=== PATIENT | male | born 1990 | race Caucasian/White ===

== ENCOUNTER 2018-10-05 20:57 | Emergency (ER) | payer MEDICAID, SELFPAY ==
[2018-10-05 21:04] VITALS: BP 137/82; PULSE 86; RESP 18; TEMP 37.3; O2SAT 99
--- NOTE | 2018-10-05 21:18 | W.ED.GENAD ---
Discharge Plan Disposition Patient Disposition: HOME Condition: Improving Discharge Details Chief Complaint: GenMedical Clinical Impression: Inguinal lymphadenopathy Primary Care Provider: CASIE BETTS ED Provider: Harpreet Holland Home Meds and New Rx's Prescriptions: No Action No Known Home Meds RF: 0 Discharge Instructions Additional Instructions: Apply heat to the area 3 times daily. If you have enlarging mass, develop a fever, redness, increased discomfort please follow-up with your regular doctor. I would anticipate resolution of approximately 7 to 10 days time. Return for any acute concerns Medical Decision Making 28-year-old male with right inguinal lymphadenopathy that he noticed tonight. He does use a razor/marina on his pubic hair and question small area of folliculitis which may be from a razor burn. As his tetanus is out of date it was updated in the ED. Do not appreciate significant cellulitis. He has mild lymphadenopathy without evidence of inguinal hernia. I will treat him conservatively with warm soaks and observation. He stable for discharge to home HPI General Mode of arrival: ambulatory. Date/Time Provider Initiated Documentation: 10/05/18 21:05. Limitations to Documentation: no limitations. Information obtained by: patient. History of Present Illness 28 year old M presents to the emergency department with the chief complaint of Right groin lump , described as moderate, Quality is described as dull and constant, and is localized to the right. Patient reports no radiation. Patient started experiencing this day(s) and it has been constant. No relieving factors improve symptom(s), No exacerbating factors reported . Patient notes no other symptoms.. Patient did receive the following treatments prior to arrival, none Related Data Home Medications Medication Instructions Recorded Confirmed Unknown [No Known Home Meds] 10/05/18 10/05/18 Allergies Allergy/AdvReac Type Severity Reaction Status Date / Time No Known Allergies Allergy Unverified 10/05/18 21:10 General Stated Complaint: GenMedical MARQUISE: 3 Review of Systems Review of Systems States he does use a marina/razor of his pubic hair. Tetanus out of date. No other recent illness. Sick systems reviewed and negative FORMERLY [facility], [facility] Medical History (Updated 10/05/18 @ 21:08 by Melina Jacob) Inguinal hernia (Acute) Surgical History (Updated 10/05/18 @ 21:11 by Melina Jacob) H/O inguinal hernia repair (Acute) Social History Smoking/Tobacco Use Status: Current every day Tobacco Type: cigarettes Smoking cigarettes per day: 30 Alcohol Intake: current Alcohol Intake frequency: a few times a week Alcohol type: beer Substance use type: does not use Do you feel safe at home: Yes Do you feel safe in your relationship?: Yes Exam Narrative Exam Narrative: GEN: awake, alert, oriented 3. Pleasant, well groomed, interactive. HEAD: Normocephalic, atraumatic ENT: Mucous membranes moist, oropharynx unremarkable, External ear exam unremarkable EYES: PERRL, EOMI NECK: Full ROM, no JONATHON, no menigismus ABDOMEN: Soft, nontender, 2 small lymph nodes prominent in right inguinal region. No other mass. 2+ inguinal pulse +Bowel sounds. Small area of folliculitis present right, no fluctuance EXT: Full ROM, no edema, no rash Neuro: Grossly normal neurologic exam, conversant, interactive. Psych: Speech fluent, thoughts congruent, affect normal Course Vital Signs Temperature 37.3 C 10/05/18 21:04 Pulse 86 10/05/18 21:04 Respiratory Rate 18 10/05/18 21:04 Blood Pressure 137/82 10/05/18 21:04 Pulse Oximetry 99 10/05/18 21:04 Temperature 37.3 C 10/05/18 21:04 Temperature Source Skin 10/05/18 21:04 Pulse 86 10/05/18 21:04 Respiratory Rate 18 10/05/18 21:04 Respiratory Effort Non-Labored 10/05/18 21:07 Blood Pressure 137/82 10/05/18 21:04 Blood Pressure Position Supine 10/05/18 21:04 Pulse Oximetry 99 10/05/18 21:04 Oxygen Delivery Method Room Air 10/05/18 21:04 Oxygen Flow Rate 0 10/05/18 21:04 Pain Level 6 10/05/18 21:04
[2018-10-05] MEDS: Tetanus & Diphtheria Tox,ADULT 0.5 ML VIAL IM (21:29)
== END 2018-10-05 21:35 | disposition home or self-care (01) ==
PROVIDERS: Emergency Provider Emergency Medicine; PCP Family Medicine
DX: R59.0 Localized enlarged lymph nodes (principal); L73.9 Follicular disorder, unspecified
CPT/HCPCS: 90471; 99284; 99282

== ENCOUNTER 2019-03-29 14:54 | Emergency (ER) | payer MEDICAID, SELFPAY ==
[2019-03-29 15:01] VITALS: BP 135/86; PULSE 88; RESP 18; TEMP 36.5; O2SAT 100
--- NOTE | 2019-03-29 15:44 | ED.GENADUL_ITS ---
Discharge Plan Disposition Patient Disposition: HOME Condition: Good Discharge Details Chief Complaint: EarProblem Clinical Impression: Cellulitis of ear Primary Care Provider: Juan Hoskins ED Provider: Mahad Salas Home Meds and New Rx's Prescriptions: New clindamycin HCl 150 mg capsule 450 mg PO QID 7 Days Qty: 84 RF: 0 Discharge Instructions Additional Instructions: Please take the antibiotic as directed. Please make sure you are taking it with yogurt with live culture like activity to prevent any diarrhea. Please keep the pressure clamp on the ear for the next 24 hours. If you notice any worsening of your symptoms, or any new symptoms such as spreading of the redness, pain in the side of your face or behind her ear, increased swelling, vomiting, diarrhea, fever, chills, shortness of breath, chest pain, numbness, weakness, or fainting , please return immediately to the emergency department for reevaluation. Please follow up with your primary care provider as soon as possible for reassessment and reevaluation. As always, it was a pleasure participating in your medical care today. Referrals: Juan Hoskins [Primary Care Provider] - Discharge Data Discharge Date/Time-TO BE ENTERED AT DEPARTURE: 03/29/19 15:50 Medical Decision Making This is a 29-year-old male with no significant past medical history who presents with swelling redness on his right ear. He had a pimple on the right ear which she tried to squeeze multiple times and was able to express a little bit of blood, however today he noticed significant amount of swelling and redness. Exam demonstrates a very small area of fluctuance and fluid collection both anterior and posterior to the cartilage. This was confirmed by ultrasound. I did offer to anesthetize the area and then I&D it with an 18-gauge needle however the patient did not want any anesthesia. 18-gauge needle was applied to both the anterior and posterior aspect, there was no invagination into the cartilage. Patient tolerated this well. The majority of the expected fluid was blood, did not appear to be any significant evidence of pus. Notable pressure dressing was then applied and left using ear clamping devices. There is no evidence of a vascular compromise after this. Patient tolerated this very well. We will start the patient on antibiotics. We gave 1 dose of Augmentin here, then increase her prescription to clindamycin. We discussed red flags for which to return. I have extensively reviewed the treatment plan and discharge instructions with the patient. I have addressed all patient concerns at this time. The patient was made aware of what symptoms to monitor for that would warrant a return to the emergency department. Discussed the plan with the patient, they demonstrate verbal understanding and agreement with our assessment and plan at this time. HPI General Date/Time Provider Initiated Documentation: 03/29/19 15:01 . HPI Narrative: This is a 29-year-old male with no significant past medical history who presents today for evaluation of right ear pain. On his right ear he developed a small pimple 2 to 3 days ago, he is tried multiple times to pop it but is only gotten small amounts of blood out. However over the last 24 hours he has had notable redness and swelling in the area. He denies any other complaints at this time. He denies fever, chills, headache, neck pain, numbness, tingling, change in hearing. He has had pimples like this in the past, and usually he is able to get them to drain. Related Data Home Medications Medication Instructions Recorded Confirmed clindamycin HCl 450 mg PO QID 7 Days #84 cap 03/29/19 Previous Rx's Medication Instructions Recorded clindamycin HCl 450 mg PO QID 7 Days #84 cap 03/29/19 Allergies Allergy/AdvReac Type Severity Reaction Status Date / Time No Known Allergies Allergy Unverified 03/29/19 15:04 General Stated Complaint: EarProblem MARQUISE: 3 Review of Systems All systems reviewed & are unremarkable except as noted in HPI and below FOR[facility]LY [facility] Medical History (Updated 10/05/18 @ 21:08 by Melina Jacob) Inguinal hernia (Acute) Surgical History (Updated 10/05/18 @ 21:11 by Melina Jacob) H/O inguinal hernia repair (Acute) Social History Smoking/Tobacco Use Status: Current every day Tobacco Type: cigarettes Alcohol Intake: current Alcohol Intake frequency: a few times a week Alcohol type: beer Drug use: Never Substance use type: does not use Do you feel safe at home: Yes Do you feel safe in your relationship?: Yes Exam Narrative Exam Narrative: 1.Const: Well-nourished, Well-developed, appearing stated age 2.Eyes: PERRL, no conjunctival injection, and symmetrical lids. 3.ENT: Atraumatic external nose and ears. Moist MM. Neck: Symmetric, trachea midline, No thyromegaly. Patient's right ear demonstrates evidence of mild redness warmth swelling and fluctuance over the antihelix of the right ear. Bedside ultrasound demonstrates fluctuance and a small fluid collection anterior and posterior to the cartilage bilaterally. No tenderness over the occiput or the mastoid process. Patient demonstrates good movement of cervical neck. There is no nuchal rigidity, no nuchal tenderness. Patient is able to flex the neck without any difficulty or significant pain. Negative Kernig's and Brudzinski sign. 4.CVS: +S1/S2, No murmurs or gallops. Peripheral pulses 2+ and equal in all extremities. Brisk capillary refill in all extremities. 5.RESP: Unlabored respiratory effort. Clear to auscultation bilaterally. No wheezes rales or rhonchi 6.GI: Soft, Nontender/Nondistended, No hepatosplenomegaly. No guarding or rebound. 7.MSK: Normocephalic/Atraumatic, Extremities w/o deformity or ttp No cyanosis or clubbing, Normal movement of all extremities 8.Skin: Warm, Dry. No rashes or lesions. 9.Neuro: hose turner II-XII grossly intact. Sensation grossly intact, no focal neurologic deficits. 10.Psych: (AAO) x3. Appropriate mood and affect Course Vital Signs Vital signs: Vital Signs Temperature 36.5 C 03/29/19 15:01 Pulse 88 03/29/19 15:01 Respiratory Rate 18 03/29/19 15:01 Blood Pressure 135/86 03/29/19 15:01 Pulse Oximetry 100 03/29/19 15:01 Temperature 36.5 C 03/29/19 15:01 Temperature Source Temporal Artery Scan 03/29/19 15:01 Pulse 88 03/29/19 15:01 Respiratory Rate 18 03/29/19 15:01 Respiratory Effort 03/29/19 15:05 Blood Pressure 135/86 03/29/19 15:01 Blood Pressure Position Sitting 03/29/19 15:01 Pulse Oximetry 100 03/29/19 15:01 Oxygen Delivery Method Room Air 03/29/19 15:01 Oxygen Flow Rate 0 03/29/19 15:01 Pain Level 0 03/29/19 15:05 Procedures Abscess I/D Site: Other (right ear) Side (if applicable): Right Amount of fluid expressed (mL): 2 Irrigation: No Packing used?: None (pressure dressing) Complications: Bleeding
[2019-03-29] MEDS: Amoxicillin 875/Clav. 125 TAB PO (15:46)
== END 2019-03-29 15:50 | disposition home or self-care (01) ==
PROVIDERS: Emergency Provider Student in an Organized Health Care Education/Training Program; PCP Family Medicine
DX: H60.11 Cellulitis of right external ear (principal)
CPT/HCPCS: 10160

== ENCOUNTER 2019-10-04 00:52 | Emergency (ER) | payer MEDICAID, SELFPAY ==
[2019-10-04 00:55] VITALS: BP 156/101; PULSE 74; RESP 18; TEMP 36.9; O2SAT 100
[2019-10-04] MEDS: Balanced Salt Solution 15 ML BTL (00:56)
[2019-10-04] MEDS: Fluorescein STRIPS 100/BOX 1 MG (00:56)
[2019-10-04] MEDS: Tetracaine 0.5% 4 ML BTL (00:56)
[2019-10-04] MEDS: Erythromycin Ophth Oint 3.5 GM TUBE OD (01:16)
--- NOTE | 2019-10-04 01:16 | W.ED.GENAD ---
Discharge Plan Disposition Patient Disposition: HOME Condition: Good Discharge Details Chief Complaint: EyeProblem Clinical Impression: Foreign body of external eye, right Primary Care Provider: Juan Hoskins ED Provider: Mahad Salas Home Meds and New Rx's Prescriptions: No Action No Known Home Meds RF: 0 Discharge Instructions Instructions: Eye Foreign Body (ED) Additional Instructions: Please apply the ointment to your affected eye 3 times per day. Please take Tylenol and Motrin for any pain. Please follow-up closely with the eye doctor for reassessment. If you notice any worsening of your symptoms, or any new symptoms such as worsening of your vision, worsening pain, vomiting, diarrhea, fever, chills, shortness of breath, chest pain, numbness, weakness, or fainting , please return immediately to the emergency department for reevaluation. Please follow up with your primary care provider as soon as possible for reassessment and reevaluation. As always, it was a pleasure participating in your medical care today. Referrals: [facility] [Outside] Medical Decision Making Very pleasant 29-year-old male with a past medical history of notable vision loss in his right eye secondary to a paintball injury, presents today for foreign body in his right eye. Patient states that he was grinding some metal today at 8:52 PM when he felt something get stuck in his right eye. He tried to take it out with a Q-tip but was unable to. He denies any acute visual change secondary to his chronic vision loss in his right eye. His tetanus is updated in the last year. He has no other complaints at this time. He does not wear contact lenses. Exam shows evidence of a small metallic foreign body in the 3 o'clock position for his right eye, eversion of the lids reveals no other foreign body, negative Dahiana sign, slit lamp reveals no other abnormality. Utilizing a TB needle is able to remove the metallic foreign body, 2 pieces were removed, which appears to be the total component of the foreign body. I was subsequently then washed out again, reassessment shows no evidence of significant foreign body that I can appreciate. Visual acuity is unchanged from his chronic baseline. Will give erythromycin ointment for comfort, and close follow-up with Dr. Blackmon. I have extensively reviewed the treatment plan and discharge instructions with the patient. I have addressed all patient concerns at this time. The patient was made aware of what symptoms to monitor for that would warrant a return to the emergency department. Discussed the plan with the patient, they demonstrate verbal understanding and agreement with our assessment and plan at this time. HPI General Date/Time Provider Initiated Documentation: 10/04/19 00:54. HPI Narrative: Very pleasant 29-year-old male with a past medical history of notable vision loss in his right eye secondary to a paintball injury, presents today for foreign body in his right eye. Patient states that he was grinding some metal today at 8:52 PM when he felt something get stuck in his right eye. He tried to take it out with a Q-tip but was unable to. He denies any acute visual change secondary to his chronic vision loss in his right eye. His tetanus is updated in the last year. He has no other complaints at this time. He does not wear contact lenses. Related Data Home Medications Medication Instructions Recorded Confirmed Unknown [No Known Home Meds] 10/04/19 10/04/19 Allergies Allergy/AdvReac Type Severity Reaction Status Date / Time No Known Allergies Allergy Unverified 10/04/19 00:57 General Stated Complaint: EyeProblem MARQUISE: 4 Review of Systems All systems reviewed & are unremarkable except as noted in HPI and below PFS Medical History Inguinal hernia (Acute) Surgical History H/O inguinal hernia repair (Acute) Social History Smoking/Tobacco Use Status: Current every day Tobacco Type: cigarettes Alcohol Intake: current Alcohol Intake frequency: a few times a week Alcohol type: beer Drug use: Never Substance use type: does not use Do you feel safe at home: Yes Do you feel safe in your relationship?: Yes Exam Narrative Exam Narrative: 1.Const: Well-nourished, Well-developed, appearing stated age 2.Eyes: PERRL, no conjunctival injection, and symmetrical lids. Right eye: EOMI, PERRL, Peripheral vision intact. No nystagmus.No clinical signs of septal/orbital cellulitis, no redness around the eye, no proptosis. No hyphema, no signs of trauma around the eye, no periorbital emphysema. No sluggishness of the pupil. No ophthalmoplegia. No afferent pupillary defect. Fluorescein exam is positive for very small amount of uptake at the 3 o'clock position of the pupil, negative Dahiana sign. Small but I would assume to be metallic foreign body present in this area with no associated rust ring. Eversion of the upper and lower lid show no other foreign bodies. 3.ENT: Atraumatic external nose and ears. Moist MM. Neck: Symmetric, trachea midline, No thyromegaly. 4.CVS: +S1/S2, No murmurs or gallops. Peripheral pulses 2+ and equal in all extremities. Brisk capillary refill in all extremities. 5.RESP: Unlabored respiratory effort. Clear to auscultation bilaterally. No wheezes rales or rhonchi 6.GI: Soft, Nontender/Nondistended, No hepatosplenomegaly. No guarding or rebound. 7.MSK: Normocephalic/Atraumatic, Extremities w/o deformity or ttp No cyanosis or clubbing, Normal movement of all extremities 8.Skin: Warm, Dry. No rashes or lesions. 9.Neuro: coronary care unit nurse II-XII grossly intact. Sensation grossly intact, no focal neurologic deficits. 10.Psych: (AAO) x3. Appropriate mood and affect Course Vital Signs Vital signs: Vital Signs Temperature 36.9 C 10/04/19 00:55 Pulse 74 10/04/19 00:55 Respiratory Rate 18 10/04/19 00:55 Blood Pressure 156/101 H 10/04/19 00:55 Pulse Oximetry 100 10/04/19 00:55 Temperature 36.9 C 10/04/19 00:55 Temperature Source Temporal Artery Scan 10/04/19 00:55 Pulse 74 10/04/19 00:55 Respiratory Rate 18 10/04/19 00:55 Respiratory Effort Non-Labored 10/04/19 00:57 Blood Pressure 156/101 H 10/04/19 00:55 Blood Pressure Position Supine 10/04/19 00:55 Pulse Oximetry 100 10/04/19 00:55 Oxygen Delivery Method Room Air 10/04/19 00:55 Oxygen Flow Rate 0 10/04/19 00:55
--- NOTE | 2019-10-04 01:18 | NUR.NOTE ---
Nursing Note:referal sent to [facility] eye [facility] along with dr note 10/04/19
== END 2019-10-04 01:20 | disposition home or self-care (01) ==
PROVIDERS: Emergency Provider Student in an Organized Health Care Education/Training Program; PCP Family Medicine
DX: T15.81XA Foreign body in other and multiple parts of external eye, right eye, initial encounter (principal); W31.1XXA Contact with metalworking machines, initial encounter
CPT/HCPCS: 65220

== ENCOUNTER 2021-08-16 08:44 | Emergency (ER) | payer MEDICAID, SELFPAY ==
[2021-08-16 08:46] VITALS: BP 126/88; PULSE 95; RESP 16; TEMP 36.9; O2SAT 99
--- NOTE | 2021-08-16 08:53 | W.ED.GENAD ---
Discharge Plan Disposition Patient Disposition: HOME Discharge Details Clinical Impression: Corneal rust ring of left eye, Foreign body of left eye, Corneal abrasion, left Primary Care Provider: Juan Hoskins ED Provider: Kwadwo Keene Home Meds and New Rx's Prescriptions: New erythromycin 5 mg/gram (0.5 %) ointment 0.5 inch ophthalmic (eye) QID 7 Days Qty: 3.5 0RF Discharge Instructions Instructions: Eye Foreign Body (ED), Corneal Abrasion (ED) Additional Instructions: I was able to remove the foreign body but residually you have a rust ring and a corneal abrasion. Erythromycin eye ointment as directed. Please contact [facility] eye care later today to discuss your ER visit need for outpatient reevaluation. Please watch for new or worsening symptoms and return to the ER for any concerns. Referrals: [facility] [Outside] Medical Decision Making This is a 31-year-old male, legally blind in his right eye, presenting with what he believes to be a rust foreign body in his left eye that he sustained 2 days ago while working on his vehicle. They attempted to remove the foreign body, he thought it was removed but continues to have pain and this morning woke up with crusting around his eye. Clinically he appears well, nontoxic. Vision in his left eye is 20/20. I was able to remove the foreign body without difficulty however there is a residual rust ring. Erythromycin eye ointment placed here in the ER. Will refer to [facility] eye [facility]. Standard discharge and return precautions were provided. Patient understands, is agreeable to this plan, and has no additional questions or concerns upon discharge. This documentation was generated using Converser dictation system, please disregard any oddities of phrase or misspellings. Medical Records Medical records reviewed: Yes I reviewed the patient's medical records. HPI General Mode of arrival: ambulatory. Date/Time Provider Initiated Documentation: 08/16/21 08:53. Limitations to Documentation: no limitations. Information obtained by: patient. History of Present Illness 31 year old M presents to the emergency department with the chief complaint of R eye pain/FB, described as mild, with intensity rated at 3. Quality is described as aching, and is localized to the eyes and right. Patient reports no radiation. Patient started experiencing this day(s) (2) and it has been constant. No relieving factors improve symptom(s), No exacerbating factors reported . Patient notes no other symptoms.. Patient did receive the following treatments prior to arrival, none Related Data Home Medications Medication Instructions Recorded Confirmed erythromycin 5 mg/gram (0.5 %) eye 0.5 inch ophthalmic (eye) QID 7 08/16/21 ointment days #3.5 grams Previous Rx's Medication Instructions Recorded erythromycin 5 mg/gram (0.5 %) eye 0.5 inch ophthalmic (eye) QID 7 08/16/21 ointment days #3.5 grams Allergies Allergy/AdvReac Type Severity Reaction Status Date / Time No Known Allergies Allergy Unverified 10/04/19 00:57 General Stated Complaint: EyeProblem MARQUISE: 4 Review of Systems Constitutional Constitutional: Denies fever(s), Denies headache(s) and Denies weakness Eyes Eyes: Reports blurry vision, Denies diplopia, Reports eye discharge and Reports eye pain ENT Ears, Nose, Mouth, and Throat: Denies headache(s) Musculoskeletal Musculoskeletal: Denies numbness and Denies tingling Integumentary/Breasts Skin/Breast: Denies erythema Neurologic Neurologic: Denies headache(s), Denies numbness, Denies tingling and Denies weakness PFSH All Active Problems (Updated 08/16/21 @ 09:15 by KRISTA Teran) Corneal rust ring of left eye (Acute) Foreign body of left eye (Acute) Corneal abrasion, left (Acute) Medical History (Updated 08/16/21 @ 09:15 by KRISTA Teran) Inguinal hernia Surgical History H/O inguinal hernia repair Social History Smoking/Tobacco Use Status: Current every day Tobacco Type: cigarettes Smoking risk assessment performed?: Yes Alcohol Intake: current Alcohol Intake frequency: a few times a month Alcohol type: beer Drug use: Never Substance use type: does not use Do you feel safe at home: Yes Do you feel safe in your relationship?: Yes Exam Const General: cooperative, healthy appearing, comfortable and no acute distress Orientation: alert and awake [facility] Head: normal to inspection, normocephalic and atraumatic Face and sinus: normal facial exam Mouth: moist mucous membranes Eyes Alignment and Position: alignment normal Periorbital: periorbital findings normal Eyelids: eyelids normal Conjunctivae: conjunctival abnormality left conjunctival injection Sclera: sclerae normal Cornea: corneas abnormal on the left fluorescein used, abrasion and foreign body metallic and with rust ring present and fluorescein used EOM: EOM intact bilaterally Neck Neck: normal visual inspection, trachea midline and supple Resp Effort & Inspection: normal respiratory effort and able to speak in complete sentences Cardio Rate: regular rate Rhythm: regular rhythm Skin General skin exam: no rashes or lesions noted Neuro General: patient alert, patient awake, moves all extremities and no focal motor deficits Sensory Exam: no sensory deficits noted Psych Appearance: grossly normal Mental Status: mental status grossly normal Course Vital Signs Vital signs: Vital Signs Temperature 36.9 C 08/16/21 08:46 Pulse 95 H 08/16/21 08:46 Respiratory Rate 16 08/16/21 08:46 Blood Pressure 126/88 08/16/21 08:46 Pulse Oximetry 99 08/16/21 08:46 Temperature 36.9 C 08/16/21 08:46 Pulse 95 H 08/16/21 08:46 Respiratory Rate 16 08/16/21 08:46 Respiratory Effort 08/16/21 08:49 Blood Pressure 126/88 08/16/21 08:46 Pulse Oximetry 99 08/16/21 08:46 Pain Level 3 08/16/21 08:46 Procedures FB Removal Eye Time Out performed: Yes Location: eye (L) Topical anesthetic used: tetracaine Foreign body: metal Evidence of corneal penetration: No Technique: cotton tip swab and needle Procedure performed under: direct visualization with magnification Post-procedure medication: ophthalmic antibiotic Patient tolerated procedure: well and no complications Complications: residual rust ring
[2021-08-16] MEDS: Erythromycin Ophth Oint 3.5 GM TUBE OS (09:12)
[2021-08-16] MEDS: Tetracaine 0.5% 4 ML BTL (09:13)
[2021-08-16] MEDS: Fluorescein STRIPS 100/BOX 1 MG (09:13)
[2021-08-16 09:30] VITALS: BP 124/68; PULSE 72; RESP 16; O2SAT 98
== END 2021-08-16 09:30 | disposition home or self-care (01) ==
PROVIDERS: Emergency Provider Physician Assistant; PCP Family Medicine
DX: S05.02XA Injury of conjunctiva and corneal abrasion without foreign body, left eye, initial encounter (principal); T15.02XA Foreign body in cornea, left eye, initial encounter; X58.XXXA Exposure to other specified factors, initial encounter
CPT/HCPCS: 65220

== ENCOUNTER 2022-01-01 18:31 | Emergency (ER) | payer MEDICAID, SELFPAY ==
[2022-01-01 18:50] VITALS: BP 131/89; PULSE 86; RESP 20; TEMP 37.7; O2SAT 98
--- NOTE | 2022-01-01 20:33 | ED.GENADUL_ITS ---
Discharge Plan Disposition Patient Disposition: HOME Condition: Stable Discharge Details Clinical Impression: Testicular pain Primary Care Provider: Juan Hoskins ED Provider: Edouard Mayberry Home Meds and New Rx's Prescriptions: New doxycycline hyclate 100 mg capsule 100 mg PO BID 7 Days Qty: 14 0RF Discharge Instructions Instructions: Epididymo-Orchitis (ED), Testicle Pain (ED) Additional Instructions: Please return tomorrow morning for follow-up ultrasound examination. Please take medications as prescribed. Please return to the emergency department for any worsening symptoms. Please follow-up with urology in the coming week. Medical Decision Making 31-year-old male presents with 4 days of dull achy right testicular discomfort, as well as urinary frequency, denies penile discharge or dysuria. Is monogamous with his however his has a male partner that she has been active with for years. Normal external genitalia, no penile discharge, normal testicles bilaterally, normal lie, normal rugated, no palpable masses. Bedside ultrasound showing normal vascular flow testicles, no appreciable mass or hypervascular structures. No hernias on examination. Consider orchitis versus epididymitis versus UTI versus unlikely testicular mass or testicular torsion. Will treat with anti-inflammatory. Will send urinalysis as well as gonorrhea chlamydia. Pending urinalysis results patient be discharged home with or without antibiotics. Will need urology follow-up and will schedule for next day u ltrasound 21: 00 patient resting comfortably no acute distress. Leuk esterase in urine. Will treat empirically for orchitis/epididymitis. IM ceftriaxone and p.o. doxycycline. Counseled patient to discuss current treatment with his sexual partner and consider having them tested. Giving patient follow-up with urology and next day ultrasound HPI General Date/Time Provider Initiated Documentation: 01/01/22 19:03 . HPI Narrative: 31-year-old male presents with right testicular pain over the past 3 to 4 days, dull aching in nature, endorses that he has been using more frequently than normal as well. Patient is monogamous with his however his does have a another male partner that he is aware of and she has been active with this individual for years. Of note his has no symptoms at this time and has been tested for STIs in the past. Patient denies penile discharge or irritation. Related Data Home Medications Medication Instructions Recorded Confirmed doxycycline hyclate 100 mg capsule 100 mg PO BID 7 days #14 caps 01/01/22 Previous Rx's Medication Instructions Recorded doxycycline hyclate 100 mg capsule 100 mg PO BID 7 days #14 caps 01/01/22 Allergies Allergy/AdvReac Type Severity Reaction Status Date / Time No Known Allergies Allergy Unverified 10/04/19 00:57 General Stated Complaint: GenMedical MARQUISE: 4 Review of Systems Narrative: Review of Systems Constitutional: negative Eyes: negative ENT: negative Cardiovascular: negative Respiratory: negative Gastrointestinal: negative : Testicular pain Musculoskeletal: negative Skin: negative Neurologic: negative Psych: negative PFSH All Active Problems (Updated 01/01/22 @ 21:02 by Edouard Mayberry MD) Testicular pain (Acute) Medical History (Updated 01/01/22 @ 21:02 by Edouard Mayberry MD) Inguinal hernia Surgical History H/O inguinal hernia repair Social History Smoking/Tobacco Use Status: Current every day Tobacco Type: cigarettes Smoking risk assessment performed?: Yes Alcohol Intake: current Alcohol Intake frequency: a few times a month Alcohol type: beer Drug use: Never Substance use type: does not use Do you feel safe at home: Yes Do you feel safe in your relationship?: Yes Exam Narrative Exam Narrative: Physical Examination General: alert, awake, cooperative, resting comfortably, no acute distress HEENT: normocephalic, atraumatic; PERRL, EOM intact, conjunctiva normal; no nasal discharge; moist mucous membranes, oral and pharyngeal mucosa normal, tolerating secretions Neck: supple, trachea midline; full ROM Chest: normal to inspection Respiratory: normal respiratory effort, speaking in full sentences, clear to auscultation, no wheezing, rales or rhonchi Cardiac: regular rate, regular rhythm, S1S2 intact, no murmurs rubs or gallops GI: abdomen soft, non-tender, non-distended; no palpable mass or hepatosplenomegaly : Normal external genitalia, no penile discharge, normal testicles bilaterally with normal lie, normal rugae, no palpable masses; no appreciable hernia Skin: no lesions, rashes or trauma appreciated Neuro: AAOx3, normal speech, moving all extremities Psych: Appropriate mood and affect Course Vital Signs Vital signs: Vital Signs Temperature 37.7 C H 01/01/22 18:50 Pulse 86 01/01/22 18:50 Respiratory Rate 20 01/01/22 18:50 Blood Pressure 131/89 01/01/22 18:50 Pulse Oximetry 98 01/01/22 18:50 Temperature 37.7 C H 01/01/22 18:50 Temperature Source Tympanic 01/01/22 18:50 Pulse 86 01/01/22 18:50 Respiratory Rate 20 01/01/22 18:50 Blood Pressure 131/89 01/01/22 18:50 Blood Pressure Position Sitting 01/01/22 18:50 Pulse Oximetry 98 01/01/22 18:50 Oxygen Delivery Method Room Air 01/01/22 18:50 Oxygen Flow Rate 0 01/01/22 18:50 Pain Level 3 01/01/22 18:50
[2022-01-01] MEDS: Ketorolac 15 MG/ML VIAL IM (20:43)
[2022-01-01 20:47] LABS: Bilirubin Negative (Negative); Blood Negative (Negative); Clarity Clear (Clear); Glucose Negative (Negative); Ketones Negative (Negative); Leukocyte Esterase Trace (Negative); Nitrite Negative (Negative); Specific Gravity 1.015 (1.005-1.025); Urobilinogen 0.2 EU/dL (Up TO 0.2); pH 7.5 (5-8)
[2022-01-01] MEDS: Doxycycline Hyclate 100 MG CAP PO (21:04)
[2022-01-01] MEDS: cefTRIAXone 1 GM VIAL (21:04)
[2022-01-01] MEDS: cefTRIAXone 500 MG VIAL IM (21:04)
[2022-01-01 21:19] LABS: Bacteria Negative HPF (Negative); Crystals Negative HPF (Negative); Epithelial Cells Negative HPF (Negative); RBC 0-2 HPF (0-2); WBC 0-2 HPF (0-5)
[2022-01-01 21:20] LABS: C & S Indicated? No; Mucus Negative (Negative)
--- NOTE | 2022-01-01 21:51 | NUR.NOTE ---
Urology referral sent for pt to be seen this week for swollen testicles - [facility] Note:
[2022-01-03 14:46] LABS: Chlamydia Result Positive (Negative); GC Result Negative (Negative)
== END 2022-01-01 21:16 | disposition home or self-care (01) ==
PROVIDERS: Emergency Provider Emergency Medicine; PCP Family Medicine
DX: N50.811 Right testicular pain (principal); R35.0 Frequency of micturition
CPT/HCPCS: 87491; 87591; 96372; 99284; 81003; 81015; J0696; J1885